=== PATIENT | female | born 1980 | race Caucasian/White ===

== ENCOUNTER 2016-02-11 17:08 | Emergency (ER) | payer OTHER ==
[2016-02-11 18:43] VITALS: BP 132/82
--- NOTE | 2016-02-11 19:14 | UC ---
Truncal Trauma HPI - History Of Current Complaint Chief Complaint: UCTrauma Stated Complaint: after wresting and a person fell on to her chest 4 days ago Time Seen by Provider: 02/11/16 19:08 Hx Obtained From: Patient Hx Last Menstrual Period: 01/26/16 ?: No Onset/Duration: Sudden Onset, Lasting Days, Still Present Onset Of Pain: Post Accident Severity Initially: Mild Severity Currently: Mild Pain Intensity: 4 Pain Scale Used: 0-10 Numeric Mechanism Of Injury: Blunt Trauma, Direct Blow Aggravating Factor(s): Nothing Alleviating factor(s): Nothing Associated Signs And Symptoms: Positive: Chest Pain - right rib - Allergies/Home Medications Allergies/Adverse Reactions: Allergies Allergy/AdvReac Type Severity Reaction Status Date / Time No Known Allergies Allergy Verified 02/11/16 18:43 PMH/Surg Hx/FS Hx/Imm Hx Previously Healthy: Yes - Surgical History Surgical History: Yes Surgery Procedure, Year, and Place: [place]. T&A - Family History Known Family History: Positive: None Family History: no cardio vascular issue reported in family lineage - Social History Occupation: Employed Full-time Lives: With Family Alcohol Use: Occasionally Substance Use Type: None Smoking Status (MU): Heavy Every Day Tobacco Smoker Have You Smoked in the Last Year: Yes Household Exposure Type: Cigarettes Cessation Counseling: Counseled 3+Min - 10 Min Review of Systems Constitutional: Negative Skin: Negative Eyes: Negative ENT: Negative Respiratory: Negative Cardiovascular: Negative, Chest Pain - right rib pain Gastrointestinal: Negative Genitourinary: Negative Motor: Negative Neurovascular: Negative Musculoskeletal: Arthralgia - right rib just below breat Neurological: Negative Psychological: Negative All Other Systems Reviewed And Are Negative: Yes Physical Exam Triage Information Reviewed: Yes Appearance: Well-Appearing, No Pain Distress, Well-Nourished Vital Signs: Initial Vital Signs Temp 98.6 F 02/11/16 18:38 Pulse 88 02/11/16 18:38 Resp 18 02/11/16 18:38 BP 132/82 02/11/16 18:38 Pulse Ox 100 02/11/16 18:38 Vital Signs Reviewed: Yes Eye Exam: Normal Eyes: Positive: Conjunctiva Clear ENT Exam: Normal ENT: Positive: Normal ENT inspection, Hearing grossly normal, Pharynx normal, TMs normal. Negative: Nasal congestion, Nasal drainage, Tonsillar swelling, Tonsillar exudate, Trismus, Muffled/hoarse voice Dental Exam: Normal Neck exam: Normal Neck: Positive: Supple, Nontender, No Lymphadenopathy Respiratory Exam: Normal Respiratory: Positive: Lungs clear, Normal breath sounds, No respiratory distress, No accessory muscle use, Other: - right anterior rib just below breast is tender Cardiovascular Exam: Normal Cardiovascular: Positive: RRR, No Murmur, Pulses Normal, Brisk Capillary Refill Abdominal Exam: Normal Abdomen Description: Positive: Nontender, No Organomegaly, Soft Bowel Sounds: Positive: Present Musculoskeletal Exam: Normal Musculoskeletal: Positive: Strength Intact Neurological Exam: Normal Neurological: Positive: Alert, Muscle Tone Normal Psychological Exam: Normal Skin Exam: Normal Diagnostics - Laboratory Diagnostic Studies Completed/Ordered: non displased #8 right rib fx Truncal Trauma Course/Dx - Course Course Of Treatment: ice, pain med follow with pcp prn - Differential Dx/Diagnosis Differential Diagnosis/HQI/PQRI: Chest Wall Contusion, Pneumothorax, Pulmonary Contusion, Rib Fracture Provider Diagnoses: 8th right rib nondisplaced fracture Discharge - Discharge Plan Condition: Stable Disposition: HOME Prescriptions: HYDROcodone/ACETAMIN 5-325 MG* [[place] 5-325 TAB*] 1 tab PO Q6H PRN #16 tab MDD 4 PRN Reason: pain Ibuprofen TAB* [Motrin TAB* 600 MG] 600 mg PO Q6H PRN #30 tab PRN Reason: pain Patient Education Materials: How to Stop Smoking (ED), Rib Fracture (ED), Cigarette Smoking and Your Health (GEN) Referrals: Shaista Diaz PA [Primary Care Provider] - If Needed
--- NOTE | 2016-02-11 19:38 | RAD ---
Indication: RIGHT rib pain following injury February 03, 2016. Comparison: None. Technique: 3 view RIGHT rib series. Report: Nondisplaced fracture at the RIGHT eighth rib anterolaterally corresponding with the site of clinical concern based on the overlying skin marker. No additional rib fracture evident. Negative for pleural effusion or pneumothorax. The heart, pulmonary vasculature, and mediastinal contours are unremarkable. IMPRESSION: Nondisplaced RIGHT eighth rib fracture anterolaterally without evidence for pneumothorax.
== END 2016-02-11 20:00 | disposition home or self-care (01) ==
LOC: UCCORT 17:08
DX: S22.31XA Fracture of one rib, right side, initial encounter for closed fracture (principal); W51.XXXA Accidental striking against or bumped into by another person, initial encounter; Y92.9 Unspecified place or not applicable; F17.210 Nicotine dependence, cigarettes, uncomplicated
CPT/HCPCS: 87086; 99212; G0463

== ENCOUNTER 2017-06-27 11:24 | Emergency (ER) | payer OTHER ==
[2017-06-27 11:54] VITALS: BP 120/80
--- NOTE | 2017-06-27 11:56 | UC ---
Complaint Female HPI - HPI Summary HPI Summary: 36 yo female presents with fishy vaginal odor noticed after intercourse for the past week. She tells me that she has had BV in the past and this feels the same. Denies fever, chills, abdominal pain, n/v/d/c, dysuria, or vaginal bleeding. - History Of Current Complaint Chief Complaint: UCGU Stated Complaint: PERSONAL Time Seen by Provider: 06/27/17 11:56 Hx Obtained From: Patient Hx Last Menstrual Period: 01/26/16 Severity Currently: None Pain Intensity: 0 Associated Signs And Symptoms: Positive: Vaginal Discharge - Allergies/Home Medications Allergies/Adverse Reactions: Allergies Allergy/AdvReac Type Severity Reaction Status Date / Time No Known Allergies Allergy Verified 06/27/17 11:53 Home Medications: Home Medications Omeprazole CAP* [Prilosec CAP* 20 MG] 20 mg 06/27/17 [History] PMH/Surg Hx/FS Hx/Imm Hx Previously Healthy: Yes GI/ History: Gastroesophageal Reflux - Surgical History Surgical History: Yes Surgery Procedure, Year, and Place: [place]. T&A - Family History Known Family History: Positive: None Family History: no cardio vascular issue reported in family lineage - Social History Occupation: Employed Full-time Lives: With Family Alcohol Use: Weekly Substance Use Type: None Smoking Status (MU): Light Every Day Tobacco Smoker Type: Cigarettes Have You Smoked in the Last Year: Yes Household Exposure Type: Cigarettes Review of Systems Constitutional: Negative Skin: Negative Respiratory: Negative Cardiovascular: Negative Gastrointestinal: Negative Genitourinary: Vaginal/Penile Discharge Neurovascular: Negative Neurological: Negative Psychological: Negative All Other Systems Reviewed And Are Negative: Yes Physical Exam - Summary Physical Exam Summary: GENERAL: NAD. WDWN. No pain distress. SKIN: No rashes, sores, lesions, or open wounds. NECK: Supple. Nontender. No lymphadenopathy. CHEST: CTAB. No r/r/w. No accessory muscle use. Breathing comfortably and in no distress. CV: RRR. Without m/r/g. Pulses intact. Brisk cap refill. ABDOMEN: Soft. NTTP. No distention or guarding. No organomegaly. No CVA tenderness. Bowel sounds present NEURO: Alert. CN II-XII grossly intact. PSYCH: Age appropriate behavior. Triage Information Reviewed: Yes Vital Signs: Initial Vital Signs Temp 98.1 F 06/27/17 11:49 Pulse 111 06/27/17 11:49 Resp 18 06/27/17 11:49 BP 120/80 06/27/17 11:49 Pulse Ox 100 06/27/17 11:49 Pelvic Exam: Positive: No Cerv. Motion Tender, No Masses, Discharge - Thin milky white, Other - exam accompanied by Thao SAHA. Negative: Active Bleeding, Lesions Complaint Female Dx - Course Course Of Treatment: Culture taken for affirm. Suspect BV will treat with flagyl and call her with results. - Differential Dx/Diagnosis Provider Diagnoses: Bacterial vaginosis Discharge - Sign-Out/Discharge Documenting (check all that apply): Discharge/Admit/Transfer - Discharge Plan Condition: Stable Disposition: HOME Prescriptions: metroNIDAZOLE [Flagyl] 500 mg PO BID #14 tablet Patient Education Materials: Bacterial Vaginosis (ED) Referrals: Shaista Diaz PA [Primary Care Provider] - Additional Instructions: If you develop a fever, shortness of breath, chest pain, new or worsening symptoms - please call your PCP or go to the ED. - Billing Disposition and Condition Condition: STABLE Disposition: HOME
--- NOTE | 2017-06-29 12:14 | UC ---
- Progress Note Progress Note: Please call patient and advise the vaginal swab was positive for BV and to continue Flagyl as prescribed. - Dolly Crespo M.D. Discharge - Sign-Out/Discharge Documenting (check all that apply): Post-Discharge Follow Up - Discharge Plan Condition: Stable Disposition: HOME Prescriptions: metroNIDAZOLE [Flagyl] 500 mg PO BID #14 tablet Patient Education Materials: Bacterial Vaginosis (ED) Referrals: Shaista Diaz PA [Primary Care Provider] - Additional Instructions: If you develop a fever, shortness of breath, chest pain, new or worsening symptoms - please call your PCP or go to the ED. - Billing Disposition and Condition Condition: STABLE Disposition: HOME
== END 2017-06-27 12:14 | disposition home or self-care (01) ==
LOC: UCEAST 11:24
DX: N76.0 Acute vaginitis (principal); K21.9 Gastro-esophageal reflux disease without esophagitis; B96.89 Other specified bacterial agents as the cause of diseases classified elsewhere; F17.210 Nicotine dependence, cigarettes, uncomplicated; Z79.899 Other long term (current) drug therapy
CPT/HCPCS: 87480; 87510; 99212; G0463